=== PATIENT | female | born 1950 | race Two or more races ===

== ENCOUNTER → 2019-04-09 | Emergency (ER) | payer OTHER | END | disposition left against medical advice (07) | LOC: ER 13:14 | DX: Z53.20 Procedure and treatment not carried out because of patient's decision for unspecified reasons (principal) ==

== ENCOUNTER → 2019-04-16 | Outpatient (CLI) | payer OTHER | END | disposition home or self-care (01) | LOC: RAD 08:12 | DX: S92.355A Nondisplaced fracture of fifth metatarsal bone, left foot, initial encounter for closed fracture (principal) ==

== ENCOUNTER → 2019-04-24 07:14 | Outpatient (CLI) | payer OTHER | END | disposition home or self-care (01) | LOC: LAB 07:14 | DX: E55.9 Vitamin D deficiency, unspecified (principal); M85.88 Other specified disorders of bone density and structure, other site; E88.89 Other specified metabolic disorders; M81.8 Other osteoporosis without current pathological fracture; E56.1 Deficiency of vitamin K; E21.2 Other hyperparathyroidism ==

== ENCOUNTER 2020-04-27 14:08 | Outpatient (CLI) | payer OTHER | END 2020-04-27 14:10 | disposition home or self-care (01) | LOC: NUCLEAR 14:08 | PROVIDERS: ATTEND Orthopaedic Surgery | DX: M81.0 Age-related osteoporosis without current pathological fracture (principal) ==

== ENCOUNTER → 2020-05-17 09:04 | Outpatient (CLI) | payer OTHER | END | disposition home or self-care (01) | LOC: LAB 09:04 | PROVIDERS: ATTEND Orthopaedic Surgery | DX: M85.88 Other specified disorders of bone density and structure, other site (principal); E55.9 Vitamin D deficiency, unspecified; E21.2 Other hyperparathyroidism; E88.89 Other specified metabolic disorders; M81.8 Other osteoporosis without current pathological fracture; E56.1 Deficiency of vitamin K ==

== ENCOUNTER 2020-08-29 09:07 | Outpatient (CLI) | payer OTHER | END 2020-08-29 09:18 | disposition home or self-care (01) | LOC: RAD 09:07 | PROVIDERS: ATTEND Internal Medicine Cardiovascular Disease | DX: M12.9 Arthropathy, unspecified (principal); M40.47 Postural lordosis, lumbosacral region ==

== ENCOUNTER 2021-02-08 07:36 | Outpatient (CLI) | payer OTHER ==
[2021-02-08] MEDS ORDERED: MYSOLINE50 MG PO (12:19)
== END 2021-02-08 07:50 | disposition home or self-care (01) ==
LOC: TOM 07:36
PROVIDERS: ATTEND Internal Medicine Cardiovascular Disease
DX: K35.890 Other acute appendicitis without perforation or gangrene (principal); R10.84 Generalized abdominal pain; K57.30 Diverticulosis of large intestine without perforation or abscess without bleeding

== ENCOUNTER 2021-02-08 11:42 | Inpatient (IN) | payer OTHER ==
[~2021-02-08] VITALS: Ht 160 cm; Wt 56.7 kg
[2021-02-08] MEDS ORDERED: MYSOLINE50 MG PO (12:19)
[2021-02-10] MEDS ORDERED: AMOX1TAB5 PO (15:01)
[2021-02-10] MEDS ORDERED: ULTRACET PO (15:02)
[2021-02-10] MEDS ORDERED: PROTONIX40 MG PO (15:02)
[2021-02-10] MEDS ORDERED: PROTONIX IV40 MG PO (15:07)
[2021-02-10] MEDS ORDERED: INTESTINEX680 M2 PO (18:38)
== END 2021-02-10 19:13 | disposition home or self-care (01) | DRG 343 ==
LOC: ER 11:42 → SEC-K 14:23 → O/R 16:20 → SURH 19:45
PROVIDERS: ADMIT Surgery; ATTEND Surgery
PROC: 0DTJ0ZZ Resection of Appendix, Open Approach (ICD-10-PCS; principal; 2021-02-08 15:30)
DX: K35.890 Other acute appendicitis without perforation or gangrene (principal); Z20.822 Contact with and (suspected) exposure to COVID-19

== ENCOUNTER 2021-04-17 10:54 | Outpatient (CLI) | payer OTHER ==
[~2021-04-17 10:54] MED LIST: AMOX1TAB5 PO; INTESTINEX680 M2 PO; MYSOLINE50 MG PO; PROTONIX IV40 MG PO; PROTONIX40 MG PO; ULTRACET PO
== END 2021-04-17 11:02 | disposition home or self-care (01) ==
LOC: LAB 10:54
PROVIDERS: ATTEND Orthopaedic Surgery
DX: E21.2 Other hyperparathyroidism (principal); M85.88 Other specified disorders of bone density and structure, other site; E55.9 Vitamin D deficiency, unspecified; E88.89 Other specified metabolic disorders; M81.8 Other osteoporosis without current pathological fracture; E56.1 Deficiency of vitamin K

== ENCOUNTER 2022-04-02 09:41 | Outpatient (CLI) | payer OTHER | END 2022-04-02 09:48 | disposition home or self-care (01) | LOC: RAD 09:41 | PROVIDERS: ATTEND Specialist | DX: Z01.811 Encounter for preprocedural respiratory examination (principal) ==

== ENCOUNTER 2022-10-01 07:46 | Outpatient (CLI) | payer OTHER | END 2022-10-01 07:48 | disposition home or self-care (01) | LOC: LAB 07:46 | PROVIDERS: ATTEND Orthopaedic Surgery | DX: M85.9 Disorder of bone density and structure, unspecified (principal); E83.42 Hypomagnesemia; E56.1 Deficiency of vitamin K ==

== ENCOUNTER 2022-10-01 08:08 | Outpatient (CLI) | payer OTHER | END 2022-10-01 08:12 | disposition home or self-care (01) | LOC: RAD 08:08 | PROVIDERS: ATTEND Orthopaedic Surgery | DX: Z12.31 Encounter for screening mammogram for malignant neoplasm of breast (principal); N63.12 Unspecified lump in the right breast, upper inner quadrant; R10.9 Unspecified abdominal pain; N80.9 Endometriosis, unspecified; M54.59 Other low back pain ==

== ENCOUNTER 2022-10-25 09:15 | Outpatient (CLI) | payer OTHER | END 2022-10-25 09:24 | disposition home or self-care (01) | LOC: RAD 09:15 | PROVIDERS: ATTEND Otolaryngology | DX: S02.2XXA Fracture of nasal bones, initial encounter for closed fracture (principal) ==

== ENCOUNTER 2022-11-14 11:09 | Outpatient (CLI) | payer OTHER | END 2022-11-14 11:19 | disposition home or self-care (01) | LOC: MRI 11:09 | PROVIDERS: ATTEND Orthopaedic Surgery | DX: M54.59 Other low back pain (principal) | CPT/HCPCS: 72148 ==

== ENCOUNTER 2023-07-01 12:37 | Outpatient (CLI) | payer OTHER | END 2023-07-01 12:39 | disposition home or self-care (01) | LOC: NUCLEAR 12:37 | PROVIDERS: ATTEND Orthopaedic Surgery | DX: M81.0 Age-related osteoporosis without current pathological fracture (principal) ==

== ENCOUNTER → 2023-09-27 06:54 | Outpatient (CLI) | payer OTHER ==
[2023-09-27 08:18] LABS: ALBUMIN 3.8 gm/dL (3.4-5.0); BILIRUBIN TOTAL 0.29 mg/dL (0.3-1.2); CALCIUM 9.3 mg/dL (8.5-10.1); CREATININE SERUM 0.62 mg/dL (0.55-1.02); GFR 94.89; GLOBULINA 3.2 G/DL (2.4-3.5); MAGNESIUM 2.5 mg/dL (1.8-2.4); PHOSPHOROUS 3.8 mg/dL (2.5-4.9); POTASSIUM 4.18 mEq/L (3.5-5.1)
[2023-10-02 15:07] LABS: VITAMIN K 0.42 ng/mL (0.10-2.20)
== END | disposition home or self-care (01) ==
LOC: LAB 06:54
PROVIDERS: ATTEND Orthopaedic Surgery
DX: E55.9 Vitamin D deficiency, unspecified (principal); M85.9 Disorder of bone density and structure, unspecified; E56.1 Deficiency of vitamin K; E21.3 Hyperparathyroidism, unspecified; E88.89 Other specified metabolic disorders; M81.8 Other osteoporosis without current pathological fracture

== ENCOUNTER 2023-12-09 10:59 | Outpatient (CLI) | payer OTHER | END 2023-12-09 11:13 | disposition home or self-care (01) | LOC: MAMO-SONO 10:59 | PROVIDERS: ATTEND Internal Medicine Cardiovascular Disease | DX: N60.11 Diffuse cystic mastopathy of right breast (principal); N60.12 Diffuse cystic mastopathy of left breast; Z12.31 Encounter for screening mammogram for malignant neoplasm of breast ==

== ENCOUNTER 2024-03-03 10:40 | Outpatient (CLI) | payer OTHER | END 2024-03-03 10:47 | disposition home or self-care (01) | LOC: TOM 10:40 | PROVIDERS: ATTEND Internal Medicine Cardiovascular Disease | DX: J44.9 Chronic obstructive pulmonary disease, unspecified (principal) ==

== ENCOUNTER 2024-03-04 08:51 | Outpatient (CLI) | payer OTHER | END 2024-03-04 08:52 | disposition home or self-care (01) | LOC: NUCLEAR 08:51 | PROVIDERS: ATTEND Internal Medicine Cardiovascular Disease | DX: I10 Essential (primary) hypertension (principal); J44.9 Chronic obstructive pulmonary disease, unspecified ==

== ENCOUNTER 2024-10-02 09:05 | Outpatient (CLI) | payer OTHER | END 2024-10-02 09:06 | disposition home or self-care (01) | LOC: NUCLEAR 09:05 | PROVIDERS: ATTEND Orthopaedic Surgery | DX: M81.0 Age-related osteoporosis without current pathological fracture (principal) ==

== ENCOUNTER 2024-10-02 10:34 | Outpatient (CLI) | payer OTHER ==
[2024-10-02 12:09] LABS: ALT/SGPT 29.0 U/L (12-78); AST/SGOT 19.0 U/L (15-37); BILIRUBIN TOTAL 0.37 mg/dL (0.3-1.2); BUN CREA RATIO 19.0 (7.0-25.0); CREATININE SERUM 0.63 mg/dL (0.55-1.02); GFR 92.89; GLOBULINA 3.1 G/DL (2.4-3.5); GLUCOSE FASTING 95.0 mg/dL (65-100); OSMOLALITY SERUM 283.0 MOSM/KG (275-295)
[2024-10-05 15:08] LABS: CALCIUM IONIZED 5.1 mg/dL (4.5-5.6); VITAMIN K 0.62 ng/mL (0.10-2.20)
== END 2024-10-02 10:36 | disposition home or self-care (01) ==
LOC: LAB 10:34
PROVIDERS: ATTEND Orthopaedic Surgery
DX: E55.9 Vitamin D deficiency, unspecified (principal); E56.1 Deficiency of vitamin K; E88.9 Metabolic disorder, unspecified; M81.8 Other osteoporosis without current pathological fracture

== ENCOUNTER 2024-12-07 08:35 | Outpatient (CLI) | payer OTHER | END 2024-12-07 08:39 | disposition home or self-care (01) | LOC: RAD 08:35 | PROVIDERS: ATTEND Physical Medicine & Rehabilitation | DX: M85.88 Other specified disorders of bone density and structure, other site (principal) ==

== ENCOUNTER 2025-03-04 07:36 | Outpatient (CLI) | payer OTHER | END 2025-03-04 07:43 | disposition home or self-care (01) | LOC: MRI 07:36 | PROVIDERS: ATTEND Internal Medicine Cardiovascular Disease | DX: M46.47 Discitis, unspecified, lumbosacral region (principal) | CPT/HCPCS: 72148 ==